=== PATIENT | female | born 2005 | race African-American/Black ===

== ENCOUNTER 2025-03-12 10:15 | Emergency (ER) | payer BC, SELFPAY ==
[2025-03-12 10:28] VITALS: BP 120/81; PULSE 96; RESP 16; TEMP 36.3; O2SAT 100
--- NOTE | 2025-03-12 10:40 | ED_ITS ---
HPI - URI/Sore Throat General Chief Complaint: Upper Respiratory Infection Stated Complaint: SWOLLEN TONSILS Time Seen by Provider: 03/12/25 10:35 Source: patient Mode of arrival: ambulatory Limitations: no limitations History of Present Illness HPI Narrative: Jing is a 19-year-old female patient presenting to the clinic today with complaints swollen tonsils with exudate x3 days. Denies any known fevers, chi lls, body aches. Denies any pain currently. Denies any other URI symptoms. Has not taken any medications to treat her symptoms. Related Data Allergies Allergy/AdvReac Type Severity Reaction Status Date / Time No Known Allergies Allergy Verified 03/12/25 10:33 Review of Systems Review of Systems: Pertinent positives per HPI. Patient denies any fever, chills, rash, headache, visual changes, dizziness, cough, shortness of breath, chest pain, palpitations, nausea, vomiting, diarrhea, constipation, abdominal pain, or any urinary issues. PMFSH Comments At the time of my signature, I reviewed and agree with the nursing past medical, surgical, social, and family history. There is no relevant family history pertinent to the patient complaint. Exam Narrative: General: Well-developed, well nourished, in no apparent distress Head: Normocephalic, atraumatic Eyes: Pupils equally round and reactive to light bilaterally, EOM intact, sclera and conjunctive clear, no discharge, lids normal Ears: TMs intact and clear, ear canals clear, no drainage, grossly hearing norm al. Nose: Nares patent, no discharge, no inflammation, no sinus tenderness. Mouth: Oral pharynx red with bilateral tonsillar enlargement with white/brown exudat, good dentition, MMM. Neck: Supple, trachea midline, mild enlargement of anterior cervical nodes, no thyroid masses or goiter palpable. Cardio: Regular rate and rhythm, s1 and s2 normal, no murmur appreciated. Resp: Clear to auscultation bilaterally, no rhonchi, rales, wheezing or rubs Course Course Emergency Course: Portions of this record may have been created with voice recognition software. Level of Care: Express Care Visit Vital Signs Vital signs: Vital Signs Temperature 36.3 C L 03/12/25 10:28 Pulse Rate 96 03/12/25 10:28 Respiratory Rate 16 03/12/25 10:28 Blood Pressure 120/81 03/12/25 10:28 Pulse Oximetry 100 03/12/25 10:28 Temperature 36.3 C L 03/12/25 10:28 Pulse Rate 96 03/12/25 10:28 Respiratory Rate 16 03/12/25 10:28 Blood Pressure 120/81 03/12/25 10:28 Pulse Oximetry 100 03/12/25 10:28 Vital signs reviewed MDM - URI/Sore Throat MDM Narrative Medical decision making narrative: At the time of visit patient is resting comfortably on the exam table. Patient appears to be nontoxic. Complaints swollen tonsils with exudate x3 days. Denies any known fevers, chills, body aches. Denies any pain currently. Denies any other URI symptoms. Has not taken any medications to treat her symptoms. On e xam patient has bilateral tonsillar swelling with white and brown exudate. Mild anterior cervical lymphadenopathy. Strep and mono test was ordered. Labs: Strep test and mono testing was negative. We will send strep for culture Plan: I suspect patient has tonsillitis with exudate. Prescription for Augmentin was sent to the pharmacy. Supportive measures were discussed with the patient and they voiced understanding discharge instructions and agrees to treatment plan. Return precautions reviewed Differential Diagnosis Differential diagnosis: Likely upper respiratory infection, otitis media, sinusitis, viral infection, bronchitis, influenza, pharyngitis and other (COVID) Discharge Plan Discharge Clinical Impression: Tonsillitis with exudate Patient Disposition: Home Condition: Stable Instructions: Antibiotic Form, Tonsillitis (ED) Additional Instructions: Strep and mono test was negative in the clinic today. Take prescription medications only as prescribed-Augmentin Increase fluids and stay well hydrated May take Tylenol or motrin as directed on bottle for pain/fever Cepacol spray, cough drops, throat lozenges, warm tea with honey/lemon, gargle salt water to soothe throat Go to the ED if you develop a worsening in your condition- high fever not controlled by Tylenol or Motrin, dehydration, weakness, lethargy, shortness of breath, or chest pain. Follow up with your PCP in 3-5 days if symptoms persist. Follow-up with ENT- Dr. Chawla-call the office on Friday to schedule appointment Patient Language: Setswana Prescriptions: New amoxicillin-pot clavulanate 875-125 mg tablet 1 tablet PO Q12H 10 Days Qty: 20 0RF Follow-up/Referrals: Sasha Chawla MD [Physician, Ear, Nose, Throat] - 2 Days Referral Note: Strep test and mono test was negative. Augmentin was prescribed. Tonsillitis with exudate Clinical Impression: Tonsillitis with exudate PHYSICIAN,SENIOR ACCOUNT MANAGER [Primary Care Provider, Internal Medicine] Time of Disposition: 10:55 Quality NIHSS Nursing Documentation ED NIHSS nursing documentation: reviewed/agree
[2025-03-12 10:48] LABS: EDSTREPNEGPOS1 Negative (Negative)
[2025-03-12 10:56] LABS: EDMONONEGPOS Negative (Negative)
== END 2025-03-12 11:09 | disposition home or self-care (01) ==
PROVIDERS: Emergency Provider Nurse Practitioner Family
DX: J03.90 Acute tonsillitis, unspecified (principal)
CPT/HCPCS: 36416; 86308; 87081; 87880; 99213; G0463